=== PATIENT | male | born 1975 | race African-American/Black ===

== ENCOUNTER 2017-09-18 07:46 | Emergency (ER) | payer MEDICAID ==
[~2017-09-18] VITALS: Ht 185.4 cm; Wt 147.4 kg
[~2017-09-18 07:46] MED LIST: ACET-8386 PO
[2017-09-18 07:49] VITALS: BP 152/89
--- NOTE | 2017-09-18 07:55 | NUR ---
Patient to bed 02.
--- NOTE | 2017-09-18 07:55 | NUR ---
PT TRIAGED, AMBULATED TO ER BED2.
--- NOTE | 2017-09-18 08:03 | NUR ---
42/M bib self C/O PERINEAL ABSCESS WOUND CHECK. PT STATES WOUND WAS I&D 09/13/2017 AT [facility].HX: NONE. MEDS: BACTRIM DS, NAPROXEN. DENIES N/V/D; SKIN IS PINK/WARM/DRY; AAOX4 WITH EVEN AND STEADY GAIT; LUNGS CLEAR BL;PATIENT STATES PAIN OF 4/10 AT THIS TIME; PATIENT POSITIONED FOR COMFORT; HOB ELEVATED; BEDRAILS UP X2; BED DOWN. ER MD MADE AWARE OF PT STATUS.
[2017-09-18] MEDS ORDERED: LIDOCAINE 1% ***ER ONLY *** 10 MG/ML VIAL INJ ONE (08:35)
[2017-09-18 09:11] VITALS: BP 146/90
--- NOTE | 2017-09-18 09:11 | NUR ---
Patient discharged with v/s stable. Written and verbal after care instructions given and explained. Patient verbalized understanding. Ambulatory with steady gait. All questions addressed prior to discharge. Advised to follow up with PMD.
== END 2017-09-18 09:11 | disposition home or self-care (01) ==
LOC: MED 07:46
DX: Z48.01 Encounter for change or removal of surgical wound dressing (principal); R03.0 Elevated blood-pressure reading, without diagnosis of hypertension; Z79.899 Other long term (current) drug therapy
CPT/HCPCS: 99283; J2001

== ENCOUNTER 2019-04-28 12:14 | Emergency (ER) | payer MEDICAID ==
[~2019-04-28] VITALS: Ht 185.4 cm; Wt 144.7 kg
[2019-04-28 12:22] VITALS: BP 145/90
--- NOTE | 2019-04-28 12:26 | NUR ---
PT AMBULATORY TO ER BED 1
[2019-04-28] MEDS ORDERED: KETOROLAC 60 MG/2 ML VIAL IM ONE (12:35)
[2019-04-28] MEDS ORDERED: ONDANSETRON 4 MG ODT PO ONE (12:35)
--- NOTE | 2019-04-28 12:43 | NUR ---
PT C/O ABD PAIN W/ DIARRHEA, NAUSEA, AND ABDOMINAL PAIN FOR 2 DAYS. PT ALSO STATES HAVING FEVER 103 AT HOME. SKIN IS PINK/WARM/DRY; AAOX4 WITH EVEN AND STEADY GAIT; PT DENIES ANY FEVER, CP, SOB, OR COUGH AT THIS TIME; PATIENT STATES PAIN OF 8/10 AT THIS TIME; VSS; PATIENT POSITIONED FOR COMFORT; HOB ELEVATED; BEDRAILS UP X1; BED DOWN. ER MD MADE AWARE OF PT STATUS.
[2019-04-28] MEDS ORDERED: NACL 0.9% 1,000 ML IV SCH (12:49)
[2019-04-28] MEDS ORDERED: ONDANSETRON 4 MG/2 ML VIAL IVP ONE (12:50)
[2019-04-28] MEDS ORDERED: KETOROLAC 30 MG/ML VIAL IVP ONE (12:50)
[2019-04-28 13:43] LABS: BASOPHILS % (AUTO) 0.6 % (0.0-2.0); EOSINOPHILS # (AUTO) 0.1 K/uL (0-0.4); EOSINOPHILS % (AUTO) 1.3 % (0.0-4.0); HEMATOCRIT 43.1 % (36-52); HEMOGLOBIN 13.9 g/dL (12.0-18.0); LYMPHOCYTES % (AUTO) 11.5 % (20.5-51.1); MEAN CORPUSCULAR HEMOGLOBIN 26 pg (27-31); MEAN CORPUSCULAR HGB CONC 32 g/dL (33-37); MEAN CORPUSCULAR VOLUME 79.7 fL (80-94); MONOCYTES # (AUTO) 0.8 K/uL (0.8-1.0); MONOCYTES % (AUTO) 9.1 % (1.7-9.3); NEUTROPHILS # (AUTO) 6.8 K/uL (1.8-7.7); NEUTROPHILS % (AUTO) 77.5 % (42.2-75.2); PLATELET COUNT (AUTO) 231 K/uL (140-450); RED BLOOD CELL COUNT(AUTO) 5.41 MIL/uL (4.20-6.10); RED CELL DISTRIBUTION WIDTH 17.6 % (11.6-13.7); WHITE BLOOD COUNT (AUTO) 8.8 K/uL (4.8-10.8)
[2019-04-28 13:50] LABS: CARBON DIOXIDE 26.3 mmol/L (21-32); CREATININE 0.9 mg/dL (0.7-1.3); POTASSIUM 3.3 mmol/L (3.5-5.1)
[2019-04-28 13:56] LABS: ALBUMIN 3.2 g/dL (3.4-5.0); TOTAL BILIRUBIN 0.4 mg/dL (0.0-1.0)
--- NOTE | 2019-04-28 14:55 | NUR ---
Patient discharged with v/s stable. Written and verbal after care instructions given and explained. Patient alert, oriented and verbalized understanding of instructions. Ambulatory with steady gait. All questions addressed prior to discharge. ID band removed. Patient advised to follow up with PMD. Rx of IMMODIUM, MOTRIN, ZOFRAN given. Patient educated on indication of medication including possible reaction and side effects. Opportunity to ask questions provided and answered.
[2019-04-28 14:56] VITALS: BP 136/87
== END 2019-04-28 14:55 | disposition home or self-care (01) ==
LOC: MED 12:14
DX: R10.30 Lower abdominal pain, unspecified (principal); R11.2 Nausea with vomiting, unspecified; R19.7 Diarrhea, unspecified; R50.9 Fever, unspecified; F17.200 Nicotine dependence, unspecified, uncomplicated; Z79.899 Other long term (current) drug therapy
CPT/HCPCS: 36415; 74176; 80053; 83690; 85025; 96361; 96374; 96375; 99284; J1885; J2405; J7030

== ENCOUNTER 2021-08-08 11:18 | Emergency (ER) | payer MEDICAID ==
[~2021-08-08] VITALS: Ht 182.9 cm; Wt 145.1 kg
[2021-08-08 11:26] VITALS: BP 155/96
--- NOTE | 2021-08-08 11:31 | NUR ---
PT AMB TO BED 12
--- NOTE | 2021-08-08 11:33 | NUR ---
Patient ambulated to restroom for urine sample.
--- NOTE | 2021-08-08 11:35 | NUR ---
46 y/o M BIB self from home c/o abdominal pain x 3 days. Patient A&Ox4, ambulatory, reports resting at home with acute onset of abdominal pain. Pt states low mid abdominal & RLQ abdominal pain 4/10, sharp/intermittent, non-radiating that worsens after meals. Patient reports alleviating factors of "pushing down on stomach." Abd soft/round/non-tender to palpation. Skin warm/pink/dry. States Tylenol 400mg @ 0900 with minor relief. Denies nausea, vomiting, constipation, chest pain, SOB, headache, dysuria, urinary symptoms. Last BM: today, diarrhea. Pt placed into a gown. Bed locked in lowest position, side rails x 1, call light in reach. PMH/Sx/Meds: Denies NKA
[2021-08-08] MEDS ORDERED: NACL 0.9% 1,000 ML IV ONE (12:15)
--- NOTE | 2021-08-08 12:30 | NUR ---
Blood sample and UA handed to CPT Susy at ER bedside
--- NOTE | 2021-08-08 12:35 | NUR ---
CT consent form signed
[2021-08-08 12:42] LABS: BASOPHILS # (AUTO) 0.1 K/uL (0.00-0.22); BASOPHILS % (AUTO) 0.8 % (0.0-2.0); EOSINOPHILS # (AUTO) 0.5 K/uL (0-0.4); HEMATOCRIT 42.2 % (36-52); HEMOGLOBIN 13.9 g/dL (12.0-18.0); LYMPHOCYTES # (AUTO) 2.1 K/uL (2.0-11.5); LYMPHOCYTES % (AUTO) 20.3 % (20.5-51.1); MEAN CORPUSCULAR HEMOGLOBIN 27 pg (27-31); MEAN CORPUSCULAR HGB CONC 33 g/dL (33-37); MEAN CORPUSCULAR VOLUME 81.5 fL (80-94); MONOCYTES # (AUTO) 0.6 K/uL (0.8-1.0); MONOCYTES % (AUTO) 5.7 % (1.7-9.3); NEUTROPHILS # (AUTO) 7.1 K/uL (1.8-7.7); NEUTROPHILS % (AUTO) 68.2 % (42.2-75.2); PLATELET COUNT (AUTO) 286 K/uL (140-450); RED BLOOD CELL COUNT(AUTO) 5.18 MIL/uL (4.20-6.10); RED CELL DISTRIBUTION WIDTH 15.4 % (11.6-13.7); WHITE BLOOD COUNT (AUTO) 10.5 K/uL (4.8-10.8)
[2021-08-08 12:45] LABS: APPEARANCE,URINE CLEAR (CLEAR); BILIRUBIN,URINE NEGATIVE (NEGATIVE); BLOOD, URINE NEGATIVE (NEGATIVE); COLOR,URINE YELLOW (YELLOW); LEUKOCYTE ESTERASE ,URINE NEGATIVE (NEGATIVE); NITRITE, URINE NEGATIVE (NEGATIVE); UGLUCOSE NEGATIVE (NEGATIVE)
[2021-08-08 13:07] LABS: ALBUMIN 3.2 g/dL (3.4-5.0); ANION GAP 11.2 (8-16); CARBON DIOXIDE 30.8 mmol/L (21-32); CREATININE 0.8 mg/dL (0.6-1.3); TOTAL BILIRUBIN 0.5 mg/dL (0.0-1.0)
[2021-08-08] MEDS ORDERED: ATRO1TAB PO (14:39)
--- NOTE | 2021-08-08 14:44 | NUR ---
PT RESTING IN BED, VSS, COLLECTED COVID NOVEL WALKED TO LAB.
[2021-08-08 14:56] VITALS: BP 136/85
--- NOTE | 2021-08-08 14:56 | NUR ---
Patient discharged with v/s stable. Written and verbal after care instructions given FOR ABD PAIN AND DIARRHEA and explained. Patient alert, oriented and verbalized understanding of instructions. Ambulatory with steady gait. All questions addressed prior to discharge. ID band removed. Patient advised to follow up with PMD. Rx of LOMOTIL given. Patient educated on indication of medication including possible reaction and side effects. Opportunity to ask questions provided and answered.
== END 2021-08-08 14:56 | disposition home or self-care (01) ==
LOC: MED 11:18
DX: R10.30 Lower abdominal pain, unspecified (principal); Z20.822 Contact with and (suspected) exposure to COVID-19; R19.7 Diarrhea, unspecified; F17.200 Nicotine dependence, unspecified, uncomplicated; Z79.899 Other long term (current) drug therapy
CPT/HCPCS: 36415; 74177; 80053; 81003; 83690; 85025; 93005; 96360; 99285; J7030; Q9967; U0003

== ENCOUNTER 2022-07-02 23:18 | Emergency (ER) | payer MEDICAID ==
[~2022-07-02] VITALS: Ht 185.4 cm; Wt 145.1 kg
[~2022-07-02 23:18] MED LIST changes: +ATRO1TAB PO
[2022-07-02 23:22] VITALS: BP 154/86
--- NOTE | 2022-07-02 23:49 | NUR ---
PT TO BED 12.
[2022-07-02] MEDS ORDERED: NACL 0.9% 1,000 ML IV ONE (23:50)
[2022-07-02] MEDS ORDERED: ONDANSETRON 4 MG/2 ML VIAL IVP ONE (23:50)
[2022-07-03] MEDS ORDERED: KETOROLAC 30 MG/ML VIAL IVP ONE (00:10)
[2022-07-03] MEDS ORDERED: diphenhydrAMINE 50 MG/ML VIAL IVP ONE (00:10)
--- NOTE | 2022-07-03 00:10 | NUR ---
Note undone in EDM - 07/03/22 at 0026 by MED 47/M BIB SELF C/C RIGHT SIDED MIGRAINE X8PM. PER PATIENT PAIN IS 9/10 AND "PULSATING". +NASAL CONGESTION +LIGHT SENSITIVITY DENIES N/V/D/C/COUGH/SOB/CP/VISUAL CHANGES. 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 PATIENT IS AAOX4 AND AMBULATORY. PMHX MIGRAINES NKA
--- NOTE | 2022-07-03 00:10 | NUR ---
47/M BIB SELF C/C RIGHT SIDED MIGRAINE X8PM. PER PATIENT PAIN IS 9/10 AND "PULSATING". +NASAL CONGESTION +LIGHT SENSITIVITY DENIES N/V/D/C/COUGH/SOB/CP/VISUAL CHANGES. 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 PATIENT IS AAOX4 AND AMBULATORY. PMHX MIGRAINES ALLERGIES PCN
--- NOTE | 2022-07-03 00:45 | NUR ---
THANG MEDICATED PER ORDERS. TOLERATED WELL. 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 PATIENT REQUESTED LIGHTS OFF. ALL NEEDS MET.
--- NOTE | 2022-07-03 01:34 | NUR ---
PT APPEARS TO BE RESTING IN SIDE LYING POSITION, EYES ARE CLOSED OPENS TO TOUCH. 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 ALL NEEDS MET AT THIS TIME. BED LOCKED IN LOWEST POSITION, SIDE RAILS X2 FOR SAFETY.
[2022-07-03] MEDS ORDERED: SUD30 PO (01:54)
[2022-07-03] MEDS ORDERED: IBUP-2213 PO (01:54)
[2022-07-03] MEDS ORDERED: SODI44SP20 NS (01:54)
[2022-07-03] MEDS ORDERED: ONDA-188 PO (01:54)
[2022-07-03] MEDS ORDERED: CETI10SG1 PO ×2 (01:55→01:56)
[2022-07-03 02:55] VITALS: BP 162/100
--- NOTE | 2022-07-03 02:55 | NUR ---
Patient discharged with v/s stable. Written and verbal after care instructions given and explained. Patient alert, oriented and verbalized understanding of instructions. Ambulatory with steady gait. All questions addressed prior to discharge. ID band removed. Patient advised to follow up with PMD. Rx of ZYRTECT, IBUPROFEN, NASAL SPRAY, , ZOFRAN, AND SUDAFED given. Patient educated on indication of medication including possible reaction and side effects. Opportunity to ask questions provided and answered.
== END 2022-07-03 02:55 | disposition home or self-care (01) ==
LOC: MED 23:18
DX: G43.909 Migraine, unspecified, not intractable, without status migrainosus (principal); Z88.0 Allergy status to penicillin; Z79.899 Other long term (current) drug therapy
CPT/HCPCS: 96361; 96374; 96375; 99284; J1200; J1885; J2405; J7030

== ENCOUNTER 2023-01-09 23:37 | Emergency (ER) | payer MEDICAID ==
[~2023-01-09] VITALS: Ht 185.4 cm; Wt 150.7 kg
[~2023-01-09 23:37] MED LIST changes: -ACET-8386 PO; +ACET-8905 PO; +CETI10SG1 PO; +IBUP-2213 PO; +ONDA-188 PO; +SODI44SP20 NS; +SUD30 PO
[2023-01-10 00:50] VITALS: BP 151/102
--- NOTE | 2023-01-10 00:56 | NUR ---
pt to lobby
--- NOTE | 2023-01-10 02:01 | NUR ---
pt ambulated to bed 6
--- NOTE | 2023-01-10 02:07 | NUR ---
Patient resting in bed, A/Ox4, chest rise and fall symmetrical, no s/s of distress, on monitor.
[2023-01-10] MEDS ORDERED: IBUP-2213 PO (03:36)
[2023-01-10] MEDS ORDERED: CLIN300C2 PO (03:36)
[2023-01-10 03:40] VITALS: BP 130/89
== END 2023-01-10 03:40 | disposition home or self-care (01) ==
LOC: MED 23:37
DX: H92.02 Otalgia, left ear (principal); Z79.899 Other long term (current) drug therapy
CPT/HCPCS: 99284

== ENCOUNTER 2023-01-15 20:07 | Emergency (ER) | payer MEDICAID ==
[~2023-01-15 20:07] MED LIST changes: +CLIN300C2 PO
--- NOTE | 2023-01-15 20:20 | NUR ---
CALLED, NO ANSWER
--- NOTE | 2023-01-15 20:35 | NUR ---
CALLED, NO ANSWER
--- NOTE | 2023-01-15 20:43 | NUR ---
CALLED, NO ANSWER. LWBS
[2023-01-16] MEDS ORDERED: BENZ-300 PO (05:23)
[2023-01-16] MEDS ORDERED: IBUP-2213 PO (05:23)
[2023-01-16] MEDS ORDERED: AMOX1TAB8 PO (05:23)
== END 2023-01-15 20:20 | disposition left against medical advice (07) ==
LOC: MED 20:07
DX: R07.0 Pain in throat (principal); Z53.21 Procedure and treatment not carried out due to patient leaving prior to being seen by health care provider

== ENCOUNTER 2023-01-16 04:55 | Emergency (ER) | payer MEDICAID ==
[~2023-01-16] VITALS: Ht 182.9 cm; Wt 149.7 kg
[2023-01-16 05:00] VITALS: BP 193/133
--- NOTE | 2023-01-16 05:07 | NUR ---
TO BED 9 FOLLOWING TRIAGE
--- NOTE | 2023-01-16 05:11 | NUR ---
Dr. Vale examining patient.
--- NOTE | 2023-01-16 05:11 | NUR ---
Giovanny mayo in ED - 01/16/23 at [email or web address] Vale examining patient.
[2023-01-16] MEDS ORDERED: BENZ-300 PO (05:23)
[2023-01-16] MEDS ORDERED: IBUP-2213 PO (05:23)
[2023-01-16] MEDS ORDERED: AMOX1TAB8 PO (05:23)
--- NOTE | 2023-01-16 05:25 | NUR ---
COVID-19, flu and strep swabs collected and sent to lab.
[2023-01-16 05:39] VITALS: BP 167/92
--- NOTE | 2023-01-16 05:39 | NUR ---
Patient discharged with v/s stable. Written and verbal after care instructions given and explained. Patient alert, oriented and verbalized understanding of instructions. Ambulatory with steady gait. All questions addressed prior to discharge. ID band removed. Patient advised to follow up with PMD. Rx of Ibuprofen, Cepacol Sore throat Lozenge and Amox-clav given. Patient educated on indication of medication including possible reaction and side effects. Opportunity to ask questions provided and answered.
== END 2023-01-16 05:39 | disposition home or self-care (01) ==
LOC: MED 04:55
DX: J36 Peritonsillar abscess (principal); Z20.822 Contact with and (suspected) exposure to COVID-19; Z79.899 Other long term (current) drug therapy
CPT/HCPCS: 87081; 99283

== ENCOUNTER 2023-06-17 22:19 | Emergency (ER) | payer MEDICAID ==
[~2023-06-17] VITALS: Ht 182.9 cm; Wt 149.7 kg
[~2023-06-17 22:19] MED LIST changes: +AMOX1TAB8 PO; +BENZ-300 PO
[2023-06-17 22:41] VITALS: BP 138/93; PULSE 79; RESP 17; TEMP 98; O2SAT 98
[2023-06-17 23:17] LABS: APPEARANCE,URINE CLEAR (CLEAR); BILIRUBIN,URINE NEGATIVE (NEGATIVE); BLOOD, URINE NEGATIVE (NEGATIVE); COLOR,URINE YELLOW (YELLOW); LEUKOCYTE ESTERASE ,URINE NEGATIVE (NEGATIVE); NITRITE, URINE NEGATIVE (NEGATIVE); PROTEIN,URINE NEGATIVE (NEGATIVE); UGLUCOSE NEGATIVE (NEGATIVE); UROBILINOGEN,URINE 0.2 EU/dL (0.2 - 1)
[2023-06-17 23:19] LABS: BASOPHILS # (AUTO) 0.1 K/uL (0.00-0.22); BASOPHILS % (AUTO) 0.8 % (0.0-2.0); EOSINOPHILS # (AUTO) 0.5 K/uL (0-0.4); EOSINOPHILS % (AUTO) 3.4 % (0.0-4.0); HEMATOCRIT 42.8 % (36-52); HEMOGLOBIN 13.9 g/dL (12.0-18.0); LYMPHOCYTES # (AUTO) 2.8 K/uL (2.0-11.5); LYMPHOCYTES % (AUTO) 21.2 % (20.5-51.1); MEAN CORPUSCULAR HEMOGLOBIN 26 pg (27-31); MEAN CORPUSCULAR HGB CONC 33 g/dL (33-37); MEAN CORPUSCULAR VOLUME 81.3 fL (80-94); MONOCYTES # (AUTO) 1.1 K/uL (0.8-1.0); NEUTROPHILS # (AUTO) 8.9 K/uL (1.8-7.7); NEUTROPHILS % (AUTO) 66.6 % (42.2-75.2); PLATELET COUNT (AUTO) 266 K/uL (140-450); RED BLOOD CELL COUNT(AUTO) 5.26 MIL/uL (4.20-6.10); RED CELL DISTRIBUTION WIDTH 15.5 % (11.6-13.7); WHITE BLOOD COUNT (AUTO) 13.4 K/uL (4.8-10.8)
[2023-06-17 23:33] LABS: ALBUMIN 3.5 g/dL (3.4-5.0); ANION GAP 8.6 (8-16); CALCIUM 9.7 mg/dL (8.5-10.1); CREATININE 0.9 mg/dL (0.6-1.3); POTASSIUM 3.6 mmol/L (3.5-5.1); TOTAL BILIRUBIN 0.8 mg/dL (0.0-1.0)
[2023-06-17 23:38] VITALS: TEMP 98
[2023-06-18] MEDS ORDERED: MORPHINE SULFATE 4 MG/ML SYR IVP ONE (01:05)
[2023-06-18 04:14] VITALS: BP 147/102; PULSE 62; RESP 16; O2SAT 95
[2023-06-18] MEDS ORDERED: FAMO-90 PO (04:45)
[2023-06-18] MEDS ORDERED: BEN10 PO (04:45)
[2023-06-18] MEDS ORDERED: MIRABULK PO (04:45)
== END 2023-06-18 04:50 | disposition home or self-care (01) ==
LOC: MED 22:19
DX: K29.70 Gastritis, unspecified, without bleeding (principal); K59.00 Constipation, unspecified; F12.90 Cannabis use, unspecified, uncomplicated; Z79.899 Other long term (current) drug therapy; Z79.1 Long term (current) use of non-steroidal anti-inflammatories (NSAID); Z79.2 Long term (current) use of antibiotics; Z88.0 Allergy status to penicillin
CPT/HCPCS: 36415; 74177; 80053; 81003; 83690; 84484; 85025; 93005; 96374; 99285; J2270; Q9967

== ENCOUNTER 2023-09-06 07:13 | Emergency (ER) | payer MEDICAID ==
[~2023-09-06] VITALS: Ht 175.3 cm; Wt 151.1 kg
[~2023-09-06 07:13] MED LIST changes: +BEN10 PO; +FAMO-90 PO; +MIRABULK PO
[2023-09-06 07:24] VITALS: BP 165/105; PULSE 78; RESP 20; TEMP 98.1; O2SAT 97
[2023-09-06] MEDS ORDERED: KETOROLAC 60 MG/2 ML VIAL IM ONE (07:35)
[2023-09-06] MEDS ORDERED: LIDOCAINE 5% 1 EA PATCH TP ONE (07:35)
[2023-09-06] MEDS ORDERED: KETOROLAC 30 MG/ML VIAL IM ONE (07:40)
[2023-09-06] MEDS ORDERED: IBUP-2218 PO (08:27)
[2023-09-06] MEDS ORDERED: CYCL-711 PO (08:27)
== END 2023-09-06 08:38 | disposition home or self-care (01) ==
LOC: MED 07:13
DX: S39.012A Strain of muscle, fascia and tendon of lower back, initial encounter (principal); S83.8X1A Sprain of other specified parts of right knee, initial encounter; Z88.0 Allergy status to penicillin; Z79.899 Other long term (current) drug therapy; V49.88XA Car occupant (driver) (passenger) injured in other specified transport accidents, initial encounter; Y93.89 Activity, other specified; Y92.89 Other specified places as the place of occurrence of the external cause; Y99.8 Other external cause status
CPT/HCPCS: 72110; 73562; 96372; 99284; J1885; Q0092

== ENCOUNTER 2024-04-12 19:05 | Emergency (ER) | payer MEDICAID, OTHER ==
[~2024-04-12] VITALS: Ht 182.9 cm; Wt 145.1 kg
[~2024-04-12 19:05] MED LIST changes: +CYCL-711 PO; +IBUP-2218 PO
[2024-04-12 19:17] VITALS: BP 180/113; PULSE 78; RESP 18; TEMP 96.7; O2SAT 100
[2024-04-12] MEDS ORDERED: ONDANSETRON 4 MG ODT ONE (19:32)
[2024-04-12] MEDS: ONDANSETRON 4 MG ODT PO ONE (19:34)
[2024-04-12] MEDS: KETOROLAC 30 MG/ML VIAL IVP ONE (20:01)
[2024-04-12] MEDS: NACL 0.9% 1,000 ML IV ONE (20:01)
[2024-04-12 20:18] LABS: BASOPHILS # (AUTO) 0.1 K/uL (0.00-0.22); BASOPHILS % (AUTO) 0.8 % (0.0-2.0); EOSINOPHILS # (AUTO) 0.2 K/uL (0-0.4); HEMATOCRIT 45.9 % (36-52); HEMOGLOBIN 14.8 g/dL (12.0-18.0); LYMPHOCYTES # (AUTO) 1.7 K/uL (2.0-11.5); LYMPHOCYTES % (AUTO) 17.2 % (20.5-51.1); MEAN CORPUSCULAR HEMOGLOBIN 28 pg (27-31); MEAN CORPUSCULAR HGB CONC 32 g/dL (33-37); MEAN CORPUSCULAR VOLUME 85.5 fL (80-94); MONOCYTES # (AUTO) 0.9 K/uL (0.8-1.0); MONOCYTES % (AUTO) 8.8 % (1.7-9.3); NEUTROPHILS # (AUTO) 7.1 K/uL (1.8-7.7); NEUTROPHILS % (AUTO) 71.2 % (42.2-75.2); PLATELET COUNT (AUTO) 210 K/uL (140-450); RED BLOOD CELL COUNT(AUTO) 5.37 MIL/uL (4.20-6.10); RED CELL DISTRIBUTION WIDTH 17.5 % (11.6-13.7)
[2024-04-12 20:22] VITALS: O2SAT 100
[2024-04-12 20:45] LABS: ANION GAP 12.3 (8-16); CALCIUM 9.5 mg/dL (8.5-10.1); CARBON DIOXIDE 28.4 mmol/L (21-32); POTASSIUM 3.7 mmol/L (3.5-5.1)
[2024-04-12 20:51] LABS: ALBUMIN 3.3 g/dL (3.4-5.0); BILIRUBIN,DIRECT 0.1 mg/dL (0.0-0.3); TOTAL BILIRUBIN 0.4 mg/dL (0.0-1.0); TOTAL PROTEIN, SERUM 6.5 g/dL (6.4-8.2)
[2024-04-12] MEDS ORDERED: METOCLOPRAMIDE 10 MG/2 ML INJ VIAL ONE (20:56)
[2024-04-12] MEDS ORDERED: MORPHINE SULFATE 4 MG/ML SYR ONE (20:56)
[2024-04-12] MEDS: MORPHINE SULFATE 4 MG/ML SYR IVP ONE (21:00)
[2024-04-12] MEDS: METOCLOPRAMIDE 10 MG/2 ML INJ VIAL IVP ONE (21:01)
[2024-04-12] MEDS ORDERED: ONDA-188 SL (22:08)
[2024-04-12] MEDS ORDERED: TAMS0.4C96 PO (22:08)
== END 2024-04-12 22:19 | disposition home or self-care (01) ==
LOC: MED 19:05
DX: N20.0 Calculus of kidney (principal); F17.200 Nicotine dependence, unspecified, uncomplicated; Z79.1 Long term (current) use of non-steroidal anti-inflammatories (NSAID); Z79.2 Long term (current) use of antibiotics; Z79.899 Other long term (current) drug therapy; Z88.0 Allergy status to penicillin
CPT/HCPCS: 36415; 74176; 80048; 80076; 83690; 85025; 96361; 96374; 96375; 99285; J1885; J2270; J2765; J7030; Q0162

== ENCOUNTER 2024-05-05 11:27 | Emergency (ER) | payer OTHER ==
[~2024-05-05] VITALS: Ht 188 cm; Wt 144.7 kg
[~2024-05-05 11:27] MED LIST changes: +ONDA-188 SL; +TAMS0.4C96 PO
[2024-05-05 11:32] VITALS: BP 140/84; PULSE 68; RESP 16; TEMP 98.2; O2SAT 99
[2024-05-05] MEDS ORDERED: IBUP-2218 PO (12:13)
[2024-05-05] MEDS ORDERED: ACET-10509 PO (12:13)
[2024-05-05 13:10] VITALS: BP 140/84; PULSE 68; RESP 16; TEMP 98.2; O2SAT 99
== END 2024-05-05 13:10 | disposition home or self-care (01) ==
LOC: MED 11:27
DX: S62.624A Displaced fracture of middle phalanx of right ring finger, initial encounter for closed fracture (principal); S62.626A Displaced fracture of middle phalanx of right little finger, initial encounter for closed fracture; R03.0 Elevated blood-pressure reading, without diagnosis of hypertension; Z79.899 Other long term (current) drug therapy; Z88.0 Allergy status to penicillin; X58.XXXA Exposure to other specified factors, initial encounter; Y92.009 Unspecified place in unspecified non-institutional (private) residence as the place of occurrence of the external cause; Y93.89 Activity, other specified; Y99.8 Other external cause status
CPT/HCPCS: 73140; 99283